=== PATIENT | male | born 1990 | race African-American/Black ===

== ENCOUNTER 2017-03-29 21:12 | Emergency (ER) | payer OTHER ==
[~2017-03-29] VITALS: Ht 182.9 cm; Wt 93.1 kg
[2017-03-29 22:01] VITALS: BP 143/90
== END 2017-03-29 22:02 | disposition home or self-care (01) ==
LOC: EME 21:12 → RME 21:12
DX: J33.9 Nasal polyp, unspecified (principal); F17.200 Nicotine dependence, unspecified, uncomplicated
CPT/HCPCS: 99281; 99283

== ENCOUNTER 2017-09-01 15:02 | Emergency (ER) | payer BC ==
[~2017-09-01] VITALS: Ht 185.4 cm; Wt 87.6 kg
[2017-09-01 15:46] LABS: HEMATOCRIT 49.7 % (38.0-50.0); HEMOGLOBIN 17.2 G/DL (12.5-16.6); MCH 32.3 PG (29.0-34.0); MCHC 34.6 G/DL (30.0-36.0); MCV 93.2 FL (86-99); PLATELET COUNT 248 K/uL (156-360); RBC DIS.WIDTH-SD 47.6 % (39-53); RED BLOOD COUNT 5.33 M/uL (4.00-5.50); WHITE BLOOD COUNT 13.1 K/uL (4.1-10.2)
[2017-09-01 15:53] LABS: CHLORIDE 102 mEq/L (99-109); POTASSIUM 3.8 mEq/L (3.7-5.4); SODIUM 139 mEq/L (136-147)
[2017-09-01 15:54] LABS: GLUCOSE 118 mg/dL (70-99)
[2017-09-01 15:58] LABS: CREATININE 0.9 mg/dL (0.6-1.3); GFR ESTIMATE (CALCULATED) > 59 mL/min/ (58.99-99999)
[2017-09-01 15:59] LABS: UREA NITROGEN (BUN) 7 mg/dL (9-23)
[2017-09-01] MEDS ORDERED: BACTRIM,SEPT1 TABLET PO (16:03)
[2017-09-01] MEDS ORDERED: MOTRIN800 MG PO (16:03)
[2017-09-01 16:17] VITALS: BP 141/88
== END 2017-09-01 16:17 | disposition home or self-care (01) ==
LOC: EME 15:02
PROVIDERS: Nurse Practitioner Family
DX: M70.21 Olecranon bursitis, right elbow (principal); Z87.891 Personal history of nicotine dependence
CPT/HCPCS: 73080; 80048; 85027; 99281; 99283